=== PATIENT | female | born 1950 | race Caucasian/White ===

== ENCOUNTER 2023-01-23 08:03 | Emergency (ER) | payer BC, MEDICARE ==
[~2023-01-23] VITALS: Ht 167.6 cm; Wt 54.5 kg
--- NOTE | 2023-01-23 09:22 | NUR ---
3rd rn attempting to get iv with us at this time.
[2023-01-23 09:56] LABS: BASOPHILS % (AUTO) 0.5 % (0-1); EOSINOPHILS # (AUTO) 0.1 X10'3 (0-0.9); EOSINOPHILS % (AUTO) 1.4 % (0-6); HEMATOCRIT 38.9 % (35.0-45.0); HEMOGLOBIN 13.4 g/dl (12.0-16.0); LYMPHOCYTES # (AUTO) 1.2 X10'3 (1.1-4.8); LYMPHOCYTES % (AUTO) 26.3 % (21-51); MEAN CORPUSCULAR HGB CONC 34.4 g/dL (33.0-36.5); MEAN CORPUSCULAR VOLUME 87.2 FL (78-98); MEAN PLATELET VOLUME 9.1 FL (7.4-10.4); MONOCYTES # (AUTO) 0.3 X10'3 (0-0.9); MONOCYTES % (AUTO) 5.8 % (2-12); NEUTROPHILS # (AUTO) 3.1 X10'3 (1.8-7.7); PLATELET COUNT 216 X10'3 (140-440); RED BLOOD COUNT 4.47 X10'6 (4.20-5.60); RED CELL DISTRIBUTION WIDTH 12.8 % (11.5-14.5); WHITE BLOOD COUNT 4.7 X10'3 (4.5-11.0)
[2023-01-23 10:08] LABS: ALANINE AMINOTRANSFERASE 15 U/L (12-78); ALBUMIN 3.8 G/DL (3.4-5.0); ALKALINE PHOSPHATASE 109 IU/L (46-116); ANION GAP 8 (8-16); ASPARTATE AMINO TRANSFERASE 10 U/L (10-37); BILIRUBIN,TOTAL 0.6 MG/DL (0.1-1.0); BLOOD UREA NITROGEN 18 MG/DL (7-18); BUN/CREATININE RATIO 20.7 (10.0-20.0); CALCIUM 9.1 MG/DL (8.5-10.1); CHLORIDE 97 MMOL/L (99-107); CREATININE 0.87 MG/DL (0.40-0.90); MAGNESIUM 1.7 MG/DL (1.5-2.4); POTASSIUM 3.3 MMOL/L (3.5-5.1); SODIUM 134 MMOL/L (135-145); TOTAL CARBON DIOXIDE 29.4 MMOL/L (24-32); TOTAL PROTEIN 7.6 G/DL (6.4-8.2); eGFR 64 ML/MIN
[2023-01-23 10:24] LABS: GLUCOSE 476 MG/DL (70-104)
[2023-01-23] MEDS ORDERED: Potassium Cl inj 20 MEQ in normal saline 250ml IV soln 250 ML IV ONE (10:30)
[2023-01-23] MEDS ORDERED: insulin regular, human 10 units/0.1 ml syringe IV ONE (10:30)
[2023-01-23] MEDS ORDERED: POTASSIUM BICARB 20meq eff tab 20 MEQ TABLET.EFF PO ONE (10:30)
[2023-01-23] MEDS ORDERED: AMLO5TAB PO (10:32)
[2023-01-23] MEDS ORDERED: APIX5TAB3 PO (10:32)
[2023-01-23] MEDS ORDERED: EMPA10TA PO (10:32)
[2023-01-23] MEDS ORDERED: ATOR40TA PO (10:32)
[2023-01-23] MEDS ORDERED: GABA-530 PO (10:37)
[2023-01-23] MEDS ORDERED: LANTUS SQ (10:37)
[2023-01-23] MEDS ORDERED: FURO-149 PO (10:37)
[2023-01-23] MEDS ORDERED: HUM7525 SQ (10:37)
--- NOTE | 2023-01-23 10:41 | NUR ---
RN REQ IV FLUIDS FROM [facility]ARM. THEY WILL PREPARE AND BRING TO ED.
[2023-01-23 13:14] LABS: CLARITY,URINE CLEAR (Clear); COLOR,URINE STRAW (Yellow); GLUCOSE, URINE >=1000 mg/dl (Neg); KETONES,URINE NEGATIVE (Neg); LEUKOCYTE ESTERASE ,URINE NEGATIVE (Neg); NITRITES, URINE NEGATIVE (Neg); OCCULT BLOOD,URINE NEGATIVE (Neg); PROTEIN,URINE NEGATIVE (Neg); UROBILINOGEN,URINE 0.2 E.U/dL (0.2-1.0)
[2023-01-23 13:20] LABS: UA COLLECTION TYPE CLN CATCH MIDSTREAM
[2023-01-23 13:23] LABS: SQUAMOUS EPITHELIAL CELL,UR FEW /LPF (FEW)
[2023-01-23 13:24] LABS: RBC,URINE 0-2 /HPF (0-2); WBC,URINE 0-4 /HPF (0-4)
[2023-01-23 13:28] LABS: BACTERIA,URINE FEW /HPF (Neg)
--- NOTE | 2023-01-23 13:44 | NUR ---
RN CALLED AND LEFT FOR PT DAUGHTER TO SEE IF SHE CAN TRANSPORT PT HOME.
[2023-01-23 13:54] VITALS: BP 157/91
--- NOTE | 2023-01-23 14:33 | NUR ---
RN SPOKE WITH [address] [place] AND CONFIRMED THAT THE CORRECT ADDRESS IS [address] PT IS ORIENTED X4 AND AGREED TO PAY FOR THE CAB WITH HER CREDIT CARD. RN SPOKE WITH PT DAUGHTER KRISTINA WHO STATED SHE WOULD NOT CALL THE PT DR OFFICE OR TAKE THE PT TO THE DR OFFICE FOR A PRINTED INSULIN RX. PT STATED THAT THE DR SENT A RX TO [facility] BUT [facility] DID NOT RECEIVE IT. RN SPOKE WITH PT SON RE WHO AGREED TO CALL THE DR OFFICE AND REQ THEY RESEND THE RX AND THEN CALL [facility] TO MAKE SURE RX RECD. RE ALSO AGREED TO REACH OUT TO HIS MOM OR [facility] AND LET HER KNOW WHEN [facility] HAS THE RX FILLED.
== END 2023-01-23 14:44 | disposition home or self-care (01) ==
LOC: ER 08:03
DX: E11.65 Type 2 diabetes mellitus with hyperglycemia (principal); Z88.0 Allergy status to penicillin; Z88.6 Allergy status to analgesic agent; Z88.5 Allergy status to narcotic agent; Z79.899 Other long term (current) drug therapy
CPT/HCPCS: 36415; 80053; 81001; 82009; 82948; 83735; 85025; 96365; 96366; 96375; 99284; J1815; J3480; J7050; 81002

== ENCOUNTER 2023-01-27 08:16 | Emergency (ER) | payer BC ==
[~2023-01-27] VITALS: Ht 170.2 cm; Wt 54.5 kg
[~2023-01-27 08:16] MED LIST: AMLO5TAB PO; APIX5TAB3 PO; ATOR40TA PO; EMPA10TA PO; FURO-149 PO; GABA-530 PO; HUM7525 SQ; LANTUS SQ
[2023-01-27] MEDS ORDERED: pantoprazole 40 MG vial IV ONE (09:40)
[2023-01-27] MEDS ORDERED: normal saline 1000ML IV soln IVB ONE (09:40)
[2023-01-27] MEDS ORDERED: ondansetron/PF 4mg/2ml inj IV ONE (09:40)
[2023-01-27] MEDS ORDERED: pantoprazole 40MG/NS 100ML BAG 100 ML IV ONE (09:45)
[2023-01-27 10:24] LABS: BASOPHILS % (AUTO) 0.6 % (0-1); EOSINOPHILS # (AUTO) 0.1 X10'3 (0-0.9); EOSINOPHILS % (AUTO) 1.1 % (0-6); HEMATOCRIT 38.5 % (35.0-45.0); LYMPHOCYTES % (AUTO) 20.8 % (21-51); MEAN CORPUSCULAR HEMOGLOBIN 29.4 PG (27.0-31.0); MEAN CORPUSCULAR HGB CONC 33.8 g/dL (33.0-36.5); MONOCYTES # (AUTO) 0.3 X10'3 (0-0.9); MONOCYTES % (AUTO) 5.4 % (2-12); NEUTROPHILS # (AUTO) 3.6 X10'3 (1.8-7.7); NEUTROPHILS % (AUTO) 72.1 % (42-75); PLATELET COUNT 232 X10'3 (140-440); RED BLOOD COUNT 4.43 X10'6 (4.20-5.60); RED CELL DISTRIBUTION WIDTH 12.7 % (11.5-14.5)
[2023-01-27 10:36] LABS: ALANINE AMINOTRANSFERASE 16 U/L (12-78); ALBUMIN 3.7 G/DL (3.4-5.0); ALBUMIN/GLOBULIN RATIO 1.2 (1.1-1.5); ALKALINE PHOSPHATASE 91 IU/L (46-116); ANION GAP 7 (8-16); ASPARTATE AMINO TRANSFERASE 12 U/L (10-37); BILIRUBIN,TOTAL 0.5 MG/DL (0.1-1.0); BLOOD UREA NITROGEN 19 MG/DL (7-18); BUN/CREATININE RATIO 22.4 (10.0-20.0); CALCIUM 9.2 MG/DL (8.5-10.1); CHLORIDE 103 MMOL/L (99-107); CREATININE 0.85 MG/DL (0.40-0.90); GLUCOSE 315 MG/DL (70-104); SODIUM 141 MMOL/L (135-145); TOTAL CARBON DIOXIDE 30.9 MMOL/L (24-32); TOTAL PROTEIN 6.9 G/DL (6.4-8.2); eGFR 65 ML/MIN
[2023-01-27 10:38] LABS: POTASSIUM 2.8 MMOL/L (3.5-5.1)
[2023-01-27] MEDS ORDERED: potassium Cl 40MEQ/1/2NS 520ml 520 ML IV ONE (10:45)
[2023-01-27 10:58] LABS: CLARITY,URINE SLIGHTLY CLOUDY (Clear); COLOR,URINE STRAW (Yellow); GLUCOSE, URINE >=1000 mg/dl (Neg); KETONES,URINE NEGATIVE (Neg); LEUKOCYTE ESTERASE ,URINE NEGATIVE (Neg); NITRITES, URINE NEGATIVE (Neg); OCCULT BLOOD,URINE NEGATIVE (Neg); PROTEIN,URINE NEGATIVE (Neg); UA COLLECTION TYPE CLN CATCH MIDSTREAM; UROBILINOGEN,URINE 0.2 E.U/dL (0.2-1.0)
[2023-01-27 11:05] LABS: SQUAMOUS EPITHELIAL CELL,UR MODERATE /LPF (FEW)
[2023-01-27 11:06] LABS: BACTERIA,URINE FEW /HPF (Neg); RBC,URINE 0-2 /HPF (0-2); TRANSITIONAL EPI CELLS,URINE FEW /HPF; WBC CLUMPS,URINE MANY /HPF (NEGATIVE)
[2023-01-27 13:15] VITALS: BP 178/82
--- NOTE | 2023-01-27 13:30 | NUR ---
Pt has now with 3rd new IV as pts previous sites had infiltrated. Pt now with 22g or R top wrist.
--- NOTE | 2023-01-27 14:45 | NUR ---
Pt C/O burning of IV site, fluids with KCL turned down for comfort.
--- NOTE | 2023-01-27 17:43 | NUR ---
PT'S FACILITY CALLED AND NOTIFIED THAT PT WILL BE DC AND SENT BACK VIA CAB.
--- NOTE | 2023-01-27 17:48 | NUR ---
[facility] CALLED FOR PT TRANSPORTATION BACK TO [facility]. ETA 183
== END 2023-01-27 18:53 | disposition home or self-care (01) ==
LOC: ER 08:17
DX: K52.9 Noninfective gastroenteritis and colitis, unspecified (principal); E87.6 Hypokalemia; I10 Essential (primary) hypertension; E11.9 Type 2 diabetes mellitus without complications; Z88.0 Allergy status to penicillin; Z88.6 Allergy status to analgesic agent; Z88.8 Allergy status to other drugs, medicaments and biological substances
CPT/HCPCS: 36415; 80053; 81001; 82948; 85025; 87088; 96365; 96366; 96375; 99284; C9113; J2405; J3480; J7030